=== PATIENT | female | born 1970 | race Caucasian/White ===

== ENCOUNTER 2017-04-12 09:41 | Day surgery (SDC) | payer OTHER ==
[2017-04-12] MEDS ORDERED: Simethicone 40 mg/0.6 ml Liquid (30 ml) ONE (10:04)
[2017-04-12] MEDS ORDERED: Lidocaine Hydrochloride 10 ML INJ ONE (13:33)
[2017-04-12] MEDS ORDERED: Propofol 10 mg/ml Inj (20 ML) ONE ×2 (13:33→13:48)
[2017-04-12 15:24] VITALS: TEMP 96.7; O2SAT 100
[2017-04-12 15:27] VITALS: RESP 19
[2017-04-12 16:28] VITALS: BP 126/77; PULSE 70
== END 2017-04-12 16:10 | disposition home or self-care (01) ==
LOC: C.ENDO 09:41
PROVIDERS: ATTEND Internal Medicine Gastroenterology
DX: K52.9 Noninfective gastroenteritis and colitis, unspecified (principal); K64.8 Other hemorrhoids; K29.70 Gastritis, unspecified, without bleeding; I10 Essential (primary) hypertension
CPT/HCPCS: 43239; 45380; 84703; 88305; 88313; 88342; J2704

== ENCOUNTER 2018-12-26 14:39 | Outpatient (CLI) | payer OTHER | END 2018-12-26 14:40 | disposition home or self-care (01) | LOC: C.RADH 14:39 ==